=== PATIENT | male | born 1980 | race Caucasian/White ===

== ENCOUNTER 2018-10-22 17:46 | Emergency (ER) | payer BC ==
[~2018-10-22] VITALS: Ht 180.3 cm; Wt 97.5 kg
[2018-10-22] MEDS ORDERED: IV NORMAL SALINE 1,000ML 1,000 ML IV ONE (18:45)
[2018-10-22] MEDS ORDERED: diphenhydrAMINE 50 MG/ML VIAL IVP ONE (18:45)
[2018-10-22] MEDS ORDERED: METOCLOPRAMIDE HCL 10 MG/2 ML VIAL. IV ONE (18:45)
--- NOTE | 2018-10-22 18:47 | PHYS DOC ---
Past History Past Medical History: Other Additional Past Medical Histor: ADHD, Blzzr-Gvdsymfaa-Flpdb Past Surgical History: Other Additional Past Surgical Histo: cardiac ablation for Ufntl-Wlasgcdym-Cjexo Alcohol Use: None Drug Use: None Adult General Chief Complaint Chief Complaint: HEADACHE HPI HPI Patient is a 38-year-old male presents with a headache that is diffuse, started yesterday, never had a headache like this before. Notes some generalized body aches and stiffness. Reports a fever but did not take home temperature. Photophobia is present, some nausea, no vomiting. No home medicines been taken. Patient reports the pain is severe. Nothing seems to make it better or worse.[] Review of Systems Review of Systems Constitutional: Denies fever or chills [] Eyes: Denies change in visual acuity, redness, or eye pain [] HENT: Denies nasal congestion or sore throat [] Respiratory: Denies cough or shortness of breath [] Cardiovascular: No chest pain or palpitations[] GI: Denies abdominal pain, nausea, vomiting, bloody stools or diarrhea [] : Denies dysuria or hematuria [] Musculoskeletal: Denies back pain or joint pain [] Integument: Denies rash or skin lesions [] Neurologic: Denies focal weakness or sensory changes, see history of present illness. No change in behavior according to patient's [] Endocrine: Denies polyuria or polydipsia [] All other systems were reviewed and found to be within normal limits, except as documented in this note. Physical Exam Physical Exam Constitutional: Well developed, well nourished, mild to moderate discomfort, non-toxic appearance. [] HENT: Normocephalic, atraumatic, bilateral external ears normal, oropharynx moist, no oral exudates, nose normal. [] Eyes: PERRLA, EOMI, conjunctiva normal, no discharge. [] Neck: Normal range of motion, no tenderness, supple, no stridor. No nuchal rigidity[] Cardiovascular:Heart rate regular rhythm, no murmur [] Lungs & Thorax: Bilateral breath sounds clear to auscultation [] Abdomen: Bowel sounds normal, soft, no tenderness, no masses, no pulsatile masses. [] Skin: Warm, dry, no erythema, no rash. No petechiae, no ulcers [] Back: No tenderness, no CVA tenderness. [] Extremities: No tenderness, no cyanosis, no clubbing, ROM intact, no edema. [] Neurologic: Alert and oriented X 3, normal motor function, normal sensory function, no focal deficits noted. [] Psychologic: Affect normal, judgement normal, mood normal. [] EKG EKG [] Radiology/Procedures Radiology/Procedures PROCEDURE: CT HEAD WO CONTRAST PQRS Compliance Statement: One or more of the following individualized dose reduction techniques were utilized for this examination: 1. Automated exposure control 2. Adjustment of the mA and/or kV according to patient size 3. Use of iterative reconstruction technique CT head without contrast 10/22/2018 6:43 PM INDICATION: Worst headache of life COMPARISON: None available TECHNIQUE: Multiple axial CT images of the head were obtained from skull base through the vertex without intravenous contrast. FINDINGS: Head: Ventricles, sulci and basal cisterns are within normal limits. There is no hydrocephalus. Byrne-white matter differentiation is normal. There is no acute intracranial hemorrhage. There is no mass, mass effect or midline shift. Posterior fossa is normal in appearance. Visualized portions of the orbits are normal. Paranasal sinuses are well aerated. Mastoid air cells are well aerated. Scalp and calvaria are normal. IMPRESSION: No acute intracranial hemorrhage.[] Course & Med Decision Making Course & Med Decision Making Pertinent Labs and Imaging studies reviewed. (See chart for details) ED course: Patient arrived, was placed in bed, and tolerated exam well. IV access was established and he was given fluids and pain medicine. He was transported to and from radiology with any complications. After the return of the imaging findings discussion was made with the patient regarding an LP. Patient deferred. Since the head CT did not show any acute features, IV NSAIDs were administered with a significant improvement in his pain. All findings were discussed with the patient who voiced understanding along with his . Patient was discharged in improved condition. Medical decision making: There is no evidence of stroke syndrome, no evidence of a mass or bleed. On physical exam patient has no evidence of meningitis. No evidence of electrolyte abnormality. No evidence of intractable pain.[] Dragon Disclaimer Dragon Disclaimer This electronic medical record was generated, in whole or in part, using a voice recognition dictation system. Departure Departure: Impression: Primary Impression: Headache Disposition: HOME, SELF-CARE Condition: STABLE Referrals: PCP,NO (PCP) Patient Instructions: General Headache Without Cause Additional Instructions: Drink plenty of fluids. Follow-up with your regular doctor in 2 days. If you do not have regular doctor list of local clinics will be provided for you. At the onset of your next headache like this try 1/4 teaspoon of yomi dissolved in water or apple juice. Return to the ER if worsening pain, change in vision, fever of more than 101�, or any other concerns. Scripts Metoclopramide Hcl (REGLAN) 10 Mg Tablet 10 MG PO QID for nausea and vomiting, #30 TAB Prov: PAT HICKS DO 10/22/18 Meloxicam (MELOXICAM) 7.5 Mg Tablet 7.5 MG PO DAILY for PAIN, #20 TAB Prov: PAT HICKS DO 10/22/18 Problem Qualifiers Primary Impression: Headache Headache type: unspecified Headache chronicity pattern: acute headache Intractability: not intractable Qualified Codes: R51 - Headache PAT HICKS DO Oct 22, 2018 18:47
[2018-10-22 19:06] LABS: BASO % 0 % (0-3); EOS % 0 % (0-3); HEMATOCRIT 46.2 % (39.0-53.0); HEMOGLOBIN 15.6 g/dL (13.0-17.5); LYMPH # 1.4 x10^3/uL (1.0-4.8); LYMPH % 20 % (24-48); MEAN CORPUSCULAR HEMOGLOBIN 30 pg (25-35); MEAN CORPUSCULAR HGB CONC 34 g/dL (31-37); MEAN CORPUSCULAR VOLUME 89 fL (79-100); MONO # 0.9 x10^3/uL (0.0-1.1); MONO % 13 % (0-9); NEUT # 4.6 x10^3uL (1.8-7.7); NEUT % 67 % (31-73); PLATELET COUNT 220 x10^3/uL (140-400); RED CELL DISTRIBUTION WIDTH 13.3 % (11.5-14.5); WHITE BLOOD COUNT 6.8 x10^3/uL (4.0-11.0)
[2018-10-22 19:19] LABS: ALBUMIN 3.8 g/dL (3.4-5.0); ALBUMIN/GLOBULIN RATIO 1.1 (1.0-1.7); GFR 83.2; POTASSIUM 3.9 mmol/L (3.5-5.1); TOTAL BILIRUBIN 0.4 mg/dL (0.2-1.0); TOTAL PROTEIN 7.4 g/dL (6.4-8.2)
--- NOTE | 2018-10-22 19:47 | RAD ---
PQRS Compliance Statement: One or more of the following individualized dose reduction techniques were utilized for this examination: 1. Automated exposure control 2. Adjustment of the mA and/or kV according to patient size 3. Use of iterative reconstruction technique CT head without contrast 10/22/2018 6:43 PM INDICATION: Worst headache of life COMPARISON: None available TECHNIQUE: Multiple axial CT images of the head were obtained from skull base through the vertex without intravenous contrast. FINDINGS: Head: Ventricles, sulci and basal cisterns are within normal limits. There is no hydrocephalus. Byrne-white matter differentiation is normal. There is no acute intracranial hemorrhage. There is no mass, mass effect or midline shift. Posterior fossa is normal in appearance. Visualized portions of the orbits are normal. Paranasal sinuses are well aerated. Mastoid air cells are well aerated. Scalp and calvaria are normal. IMPRESSION: No acute intracranial hemorrhage. Electronically signed by: Moon Leonard MD (10/22/2018 7:44 PM) [facility]
[2018-10-22] MEDS ORDERED: KETOROLAC 30 MG/ML VIAL. ONE (20:14)
[2018-10-22] MEDS ORDERED: KETOROLAC 30 MG/ML VIAL. IV ONE (20:15)
[2018-10-22] MEDS ORDERED: METO10TA81 PO (21:08)
[2018-10-22] MEDS ORDERED: MELO7.5T29 PO (21:08)
[2018-10-22 21:25] VITALS: BP 126/85
== END 2018-10-22 21:25 | disposition home or self-care (01) ==
LOC: ER 17:46
DX: R51 Headache (principal); F90.9 Attention-deficit hyperactivity disorder, unspecified type; I45.6 Pre-excitation syndrome
CPT/HCPCS: 36415; 70450; 80053; 85025; 85610; 87040; 96374; 96375; 99285; J1200; J1885; J2765; J7030

== ENCOUNTER 2018-10-24 01:44 | Emergency (ER) | payer BC ==
[~2018-10-24] VITALS: Ht 180.3 cm; Wt 97.5 kg
[~2018-10-24 01:44] MED LIST: MELO7.5T29 PO; METO10TA81 PO
--- NOTE | 2018-10-24 01:54 | ED.ADGEN ---
Past History Past Medical History: Other Additional Past Medical Histor: ADHD, Knxsv-Iijxgnggh-Mbjeg (JUAN ALCANTARA MD) Past Surgical History: Other Additional Past Surgical Histo: cardiac ablation for Dhxes-Fkahvvwwc-Hkvnt (JUAN ALCANTARA MD) Alcohol Use: None Drug Use: None (JUAN ALCANTARA MD) Adult General Chief Complaint Chief Complaint ".. I was here the other day... they did labs... and a CT... but my head ache is no better..." (JUAN ALCANTARA MD) HPI HPI Patient is a 38 year old male who presents with above hx and complaints of headache and photophobia. No prior hx migraines. No hx of trauma . Recent move from [place]. Pt. is under a lot of stress, new baby, new job. . Pt. states he's had no improvement with meds given when he was here on Saturday the october. Pt. denies any history of immunosuppression. Patient states he is normally healthy. (JUAN ALCANTARA MD) Review of Systems Review of Systems Constitutional: Denies fever or chills [] Eyes: Denies change in visual acuity, redness, or eye pain []complaints of photophobia HENT: Denies nasal congestion or sore throat [] Respiratory: Denies cough or shortness of breath [] Cardiovascular: No additional information not addressed in HPI [] GI: Denies abdominal pain, nausea, vomiting, bloody stools or diarrhea [] : Denies dysuria or hematuria [] Musculoskeletal: Denies back pain or joint pain [] Integument: Denies rash or skin lesions [] Neurologic: Complaints of headache,. Denies focal weakness or sensory changes [] Endocrine: Denies polyuria or polydipsia [] All other systems were reviewed and found to be within normal limits, except as documented in this note. (JUAN ALCANTARA MD) Family History Family History Noncontributory (JUAN ALCANTARA MD) Current Medications Current Medications Current Medications Medications (Trade) Dose Ordered Sig/Sebas Start Time Stop Time Status Last Admin Dose Admin Diphenhydramine HCl (Benadryl) 25 mg 1X ONCE 10/24/18 06:30 10/24/18 06:31 DC 10/24/18 06:29 25 MG Fentanyl Citrate (Fentanyl 2ml Vial) 75 mcg 1X ONCE 10/24/18 04:45 10/24/18 04:53 DC 10/24/18 05:07 75 MCG Lactated Ringer's 1,000 ml @ 1,000 mls/hr Q1H 10/24/18 03:00 10/24/18 03:59 DC 10/24/18 03:21 1,000 MLS/HR Lidocaine/ Epinephrine (Xylocaine 1%-Epi 1:100,000) 20 ml STK-MED ONCE 10/24/18 05:19 10/24/18 05:19 DC Lidocaine/ Epinephrine (Xylocaine 2%-Epi 1:100,000) 20 ml STK-MED ONCE 10/24/18 05:19 10/24/18 05:19 DC Methylprednisolone Sodium Succinate (SOLU-Medrol 125MG VIAL) 125 mg 1X ONCE 10/24/18 05:30 10/24/18 05:42 DC 10/24/18 06:10 125 MG Metoclopramide HCl (Reglan Vial) 10 mg 1X ONCE 10/24/18 06:30 10/24/18 06:31 DC 10/24/18 06:29 10 MG Ondansetron HCl (Zofran) 8 mg 1X ONCE 10/24/18 03:00 10/24/18 03:04 DC 10/24/18 03:21 8 MG Sodium Chloride 50 ml @ As Directed STK-MED ONCE 10/24/18 03:01 10/24/18 03:01 DC Valproic Acid (Depacon) 500 mg STK-MED ONCE 10/24/18 03:01 10/24/18 03:01 DC Valproic Acid 500 mg/Sodium Chloride 55 ml @ 55 mls/hr 1X ONCE 10/24/18 03:00 10/24/18 03:59 DC 10/24/18 03:21 55 MLS/HR (TYREE LOZANO DO) Current Medications See nursing for home meds (JUAN ALCANTARA MD) Allergies Allergies Allergies Coded Allergies Type Severity Reaction Last Updated Verified azithromycin Allergy Severe 10/22/18 Yes cefaclor Allergy Severe 10/22/18 Yes codeine Allergy Severe 10/22/18 Yes (TYREE LOZANO DO) Physical Exam Physical Exam Constitutional: Well developed, well nourished, moderately acute distress, non- toxic appearance. [] HENT: Normocephalic, atraumatic, bilateral external ears normal, oropharynx moist, no oral exudates, nose normal. [] Eyes: PERRLA, EOMI, conjunctiva normal, no discharge. []Photophobia Neck: Normal range of motion, no tenderness, supple, no stridor. [] Cardiovascular:Heart rate regular rhythm, no murmur [] Lungs & Thorax: Bilateral breath sounds clear to auscultation [] Abdomen: Bowel sounds normal, soft, no tenderness, no masses, no pulsatile masses. [] Skin: Warm, dry, no erythema, no rash. [] Back: No tenderness, no CVA tenderness. [] Extremities: No tenderness, no cyanosis, no clubbing, ROM intact, no edema. [] Neurologic: Alert and oriented X 3, normal motor function, normal sensory function, no focal deficits noted. [] DTR + 2, chief orthoptist equal. No drift. Right- hand dominant Psychologic: Affect anxious, judgement normal, mood normal. [] (JUAN ALCANTARA MD) Current Patient Data Vital Signs Vital Signs Date Time Temp Pulse Resp B/P (MAP) Pulse Ox O2 Delivery O2 Flow Rate FiO2 10/24/18 06:22 58 16 122/74 (90) 98 Room Air 10/24/18 03:23 97.6 (TYREE LOZANO DO) Lab Results Laboratory Tests Test 10/24/18 02:47 10/24/18 03:16 10/24/18 05:37 Urine Collection Type Unknown Urine Color Yellow Urine Clarity Clear Urine pH 5.5 Urine Specific Fraser 1.020 Urine Protein Neg (NEG-TRACE) Urine Glucose (UA) Neg mg/dL (NEG) Urine Ketones (Stick) Neg mg/dL (NEG) Urine Blood Neg (NEG) Urine Nitrite Neg (NEG) Urine Bilirubin Neg (NEG) Urine Urobilinogen Dipstick 0.2 mg/dL (0.2 mg/dL) Urine Leukocyte Esterase Neg (NEG) Urine RBC 0 /HPF (0-2) Urine WBC Occ /HPF (0-4) Urine Squamous Epithelial Cells None /LPF Urine Bacteria 0 /HPF (0-FEW) Urine Opiates Screen Neg (NEG) Urine Methadone Screen Neg (NEG) Urine Barbiturates Neg (NEG) Urine Phencyclidine Screen Neg (NEG) Urine Amphetamine/Methamphetamine Neg (NEG) Urine Benzodiazepines Screen Neg (NEG) Urine Cocaine Screen Neg (NEG) Urine Cannabinoids Screen Neg (NEG) Urine Ethyl Alcohol Neg (NEG) White Blood Count 6.1 x10^3/uL (4.0-11.0) Red Blood Count 4.91 x10^6/uL (4.30-5.70) Hemoglobin 14.6 g/dL (13.0-17.5) Hematocrit 43.6 % (39.0-53.0) Mean Corpuscular Volume 89 fL (79-100) Mean Corpuscular Hemoglobin 30 pg (25-35) Mean Corpuscular Hemoglobin Concent 34 g/dL (31-37) Red Cell Distribution Width 13.2 % (11.5-14.5) Platelet Count 210 x10^3/uL (140-400) Neutrophils (%) (Auto) 58 % (31-73) Lymphocytes (%) (Auto) 30 % (24-48) Monocytes (%) (Auto) 11 % (0-9) H Eosinophils (%) (Auto) 1 % (0-3) Basophils (%) (Auto) 0 % (0-3) Neutrophils # (Auto) 3.5 x10^3uL (1.8-7.7) Lymphocytes # (Auto) 1.8 x10^3/uL (1.0-4.8) Monocytes # (Auto) 0.7 x10^3/uL (0.0-1.1) Eosinophils # (Auto) 0.0 x10^3/uL (0.0-0.7) Basophils # (Auto) 0.0 x10^3/uL (0.0-0.2) Erythrocyte Sedimentation Rate 3 (0-15) Prothrombin Time 9.4 SEC (9.4-11.4) Prothrombin Time INR 0.9 (0.9-1.1) Activated Partial Thromboplast Time 27 SEC (23-33) Sodium Level 138 mmol/L (136-145) Potassium Level 4.2 mmol/L (3.5-5.1) Chloride Level 104 mmol/L (98-107) Carbon Dioxide Level 27 mmol/L (21-32) Anion Gap 7 (6-14) Blood Urea Nitrogen 12 mg/dL (8-26) Creatinine 0.9 mg/dL (0.7-1.3) Estimated GFR (Cockcroft-Gault) 93.9 Glucose Level 108 mg/dL (70-99) H Calcium Level 8.6 mg/dL (8.5-10.1) Magnesium Level 2.2 mg/dL (1.8-2.4) Total Bilirubin 0.4 mg/dL (0.2-1.0) Direct Bilirubin 0.1 mg/dL (0.0-0.2) Aspartate Amino Transferase (AST) 14 U/L (15-37) L Alanine Aminotransferase (ALT) 28 U/L (16-63) Alkaline Phosphatase 51 U/L (46-116) C-Reactive Protein 3.8 mg/L (0-3.3) H Total Protein 6.8 g/dL (6.4-8.2) Albumin 3.5 g/dL (3.4-5.0) CSF Tube Number 3 CSF Volume 7.0 CSF Color Colorless CSF Clarity Clear CSF WBC 61 CSF RBC 19 CSF Mononuclear WBCs % 95 % CSF Polynuclear WBCs (%) 5 % CSF Other Cells % 0 % CSF Glucose 66 mg/dL (37-70) CSF Total Protein 45.4 mg/dL (15.0-45.0) H Microbiology (TYREE LOZANO DO) Lab Results Microbiology 10/24/18 Gram Stain - Final, Complete (JUAN ALCANTARA MD) EKG EKG [] (JUAN ALCANTARA MD) Radiology/Procedures Radiology/Procedures [][address] [address] IMAGING REPORT Signed PATIENT: EVAN NGUYEN ACCOUNT: [id number] : 1980 LOCATION: ER AGE: 38 SEX: M EXAM STATUS: REG ER ORD. PHYSICIAN: JUAN ALCANTARA MD REASON: Headache- no improvement since CT on 10/22- more severe PROCEDURE: CT HEAD WO CONTRAST INDICATION: Headache COMPARISON: October 22, 2018 TECHNIQUE: Axial CT images obtained through the head without intravenous contrast. One or more of the following individualized dose reduction techniques were utilized for this examination: 1. Automated exposure control; 2. Adjustment of the mA and/or kV according to patient size; 3. Use of iterative reconstruction technique. FINDINGS: No intracranial hemorrhage. No midline shift. Basal cisterns patent. Ventricles and sulci are unremarkable. No acute osseous abnormality. Orbits and paranasal sinuses unremarkable. IMPRESSION: 1. No acute intracranial hemorrhage. Electronically signed by: Lucas Sousa MD (10/24/2018 4:00 AM) [facility] DICTATED AND SIGNED BY: LUCAS OSUSA MD DATE: 10/24/18 040 CC: JUAN ALCANTARA MD; PCP,NO ~ (JUAN ALCANTARA MD) Course & Med Decision Making Course & Med Decision Making Pertinent Labs and Imaging studies reviewed. (See chart for details) Pt. reports no improvement in headache Reviewed risk and benefits of spinal tap- patient somewhat reluctant but agreeable to procedure. [] (JUAN ALCANTARA MD) Course & Med Decision Making I gave the patient 10 mg of Reglan and 25 mg of Benadryl. His pain is improved to a 1 or 2 out of 10. History of a spinal fluid showed white cells of 61 and red cells of 19. The white cell percentage is 95% monomorphic white cells. Glucose is 66 and the protein is 45. Based on these results and the rest of his workup being remarkable except for the headache, viral meningitis is a possibility. All cultures are pending. I discussed these results with the patient. I offered to admit him to the hospital. He would prefer home. Based on his results and examination, I feel this is reasonable. I have informed the patient that if his condition worsens in any way, he develops a fever, or any new symptoms develop he should return to the emergency room. He has stated verbal agreement. He is stable for discharge at this time. (TYREE LOZANO DO) Final Impression Final Impression 1. Headache[] 2. Elevated CRP 3.8 3. Mild Elevation Garza 4. Suspect Viral cephalgia LP results pending at shift change. Dr. Olvera will make disposition. (JUAN ALCANTARA MD) Final Impression viral meningitis headache (TYREE LOZANO DO) Dragon Disclaimer Dragon Disclaimer This electronic medical record was generated, in whole or in part, using a voice recognition dictation system. (JUAN ALCANTARA MD) Dragon Disclaimer This chart was dictated in whole or in part using Voice Recognition software in a busy, high-work load, and often noisy Emergency Department environment. It may contain unintended and wholly unrecognized errors or omissions. (JUAN ALCANTARA MD) JUAN ALCANTARA MD Oct 24, 2018 01:54 TYREE LOZANO DO Oct 24, 2018 07:54
[2018-10-24] MEDS ORDERED: ONDANSETRON PF 4 MG/2 ML VIAL. IV ONE (03:00)
[2018-10-24] MEDS ORDERED: IV RINGERS SOLUTION,LACTATED 1,000 ML IV SCH (03:00)
[2018-10-24] MEDS ORDERED: VALPROATE SODIUM 500 MG in IV NORMAL SALINE 50ML 50 ML IV ONE (03:00)
[2018-10-24] MEDS ORDERED: IV NORMAL SALINE 50ML 50 ML ONE (03:01)
[2018-10-24] MEDS ORDERED: VALPROATE SODIUM 500 MG/5 ML VIAL IV ONE (03:01)
[2018-10-24 03:42] LABS: BACTERIA,URINE 0 /HPF (0-FEW); BILIRUBIN,URINE NEG (NEG); CLARITY,URINE CLEAR; COLOR,URINE YELLOW; GLUCOSE,URINE NEG (NEG); NITRITE,URINE NEG (NEG); RBC,URINE 0 /HPF (0-2); UROBILINOGEN,URINE 0.2 mg/dL (0.2 mg/dL); WBC,URINE OCC /HPF (0-4)
[2018-10-24 03:48] LABS: BARBITURATES NEG (NEG); BENZODIAZEPINES NEG (NEG); CANNABINOIDS NEG (NEG); COCAINE NEG (NEG); METHADONE NEG (NEG); OPIATES NEG (NEG); PHENCYCLIDINE NEG (NEG)
[2018-10-24 03:48] LABS: ALBUMIN 3.5 g/dL (3.4-5.0); C REACTIVE PROTEIN 3.8 mg/L (0-3.3); CALCIUM 8.6 mg/dL (8.5-10.1); CREATININE 0.9 mg/dL (0.7-1.3); DIRECT BILIRUBIN 0.1 mg/dL (0.0-0.2); GFR 93.9; MAGNESIUM 2.2 mg/dL (1.8-2.4); POTASSIUM 4.2 mmol/L (3.5-5.1); TOTAL BILIRUBIN 0.4 mg/dL (0.2-1.0); TOTAL PROTEIN 6.8 g/dL (6.4-8.2)
[2018-10-24 03:50] LABS: AMPHETAMINE/METHAMPHETAMINE NEG (NEG)
--- NOTE | 2018-10-24 04:03 | RAD ---
INDICATION: Headache COMPARISON: October 22, 2018 TECHNIQUE: Axial CT images obtained through the head without intravenous contrast. One or more of the following individualized dose reduction techniques were utilized for this examination: 1. Automated exposure control; 2. Adjustment of the mA and/or kV according to patient size; 3. Use of iterative reconstruction technique. FINDINGS: No intracranial hemorrhage. No midline shift. Basal cisterns patent. Ventricles and sulci are unremarkable. No acute osseous abnormality. Orbits and paranasal sinuses unremarkable. IMPRESSION: 1. No acute intracranial hemorrhage. Electronically signed by: Jose Miguel Mujica MD (10/24/2018 4:00 AM) [id number]
[2018-10-24 04:20] LABS: BASO % 0 % (0-3); EOS % 1 % (0-3); HEMATOCRIT 43.6 % (39.0-53.0); HEMOGLOBIN 14.6 g/dL (13.0-17.5); LYMPH # 1.8 x10^3/uL (1.0-4.8); LYMPH % 30 % (24-48); MEAN CORPUSCULAR HEMOGLOBIN 30 pg (25-35); MEAN CORPUSCULAR HGB CONC 34 g/dL (31-37); MEAN CORPUSCULAR VOLUME 89 fL (79-100); MONO # 0.7 x10^3/uL (0.0-1.1); MONO % 11 % (0-9); NEUT # 3.5 x10^3uL (1.8-7.7); NEUT % 58 % (31-73); PLATELET COUNT 210 x10^3/uL (140-400); RED BLOOD COUNT 4.91 x10^6/uL (4.30-5.70); RED CELL DISTRIBUTION WIDTH 13.2 % (11.5-14.5); WHITE BLOOD COUNT 6.1 x10^3/uL (4.0-11.0)
[2018-10-24 04:31] LABS: SEDIMENTATION RATE 3 (0-15)
[2018-10-24] MEDS ORDERED: LIDOCAINE 1%/EPI 1:100,000 20 ML VIAL. ONE (05:19)
[2018-10-24] MEDS ORDERED: LIDOCAINE 2%/EPI 1:100,000 20 ML VIAL. ONE (05:19)
[2018-10-24] MEDS ORDERED: methylPREDNISolone SOD SUCC PF 125 MG/2 ML VIAL. IV ONE (05:30)
[2018-10-24] MEDS ORDERED: diphenhydrAMINE 50 MG/ML VIAL IVP ONE (06:30)
[2018-10-24] MEDS ORDERED: METOCLOPRAMIDE HCL 10 MG/2 ML VIAL. IV ONE (06:30)
[2018-10-24 06:31] LABS: CSF PROTEIN 45.4 mg/dL (15.0-45.0)
[2018-10-24 06:48] LABS: CSF CLARITY CLEAR; CSF COLOR COLORLESS
[2018-10-24 06:49] LABS: CSF MON % 95 %; CSF OTHER % 0 %; CSF PMN % 5 %; CSF RBC COUNT 19; CSF WBC COUNT 61
[2018-10-24] MEDS ORDERED: HYDR-3165 PO (07:55)
[2018-10-24 08:11] VITALS: BP 123/72
[2018-11-03 08:08] LABS: VIRAL CULT FINAL No virus isolated. (.)
== END 2018-10-24 08:15 | disposition home or self-care (01) ==
LOC: ER 01:44
DX: A87.9 Viral meningitis, unspecified (principal); R51 Headache; R79.82 Elevated C-reactive protein (CRP); D72.821 Monocytosis (symptomatic); F90.9 Attention-deficit hyperactivity disorder, unspecified type; I45.6 Pre-excitation syndrome; Z88.1 Allergy status to other antibiotic agents; Z88.5 Allergy status to narcotic agent
CPT/HCPCS: 36415; 62270; 70450; 80048; 80076; 80307; 81001; 82945; 83735; 84157; 85025; 85610; 85651; 85730; 86140; 87071; 87075; 87102; 87252; 89051; 96365; 96375; 99285; J1200; J2405; J2765; J2930; J3010; J3490; J7120